=== PATIENT | female | born 1960 | race Caucasian/White ===

== ENCOUNTER 2016-04-19 11:39 | Emergency (ER) | payer OTHER ==
[2016-04-19] MEDS ORDERED: ASPIRIN CHEWTAB 81 MG TABLET ONE (12:06)
[2016-04-19] MEDS ORDERED: PREDNISONE 20 MG TABLET ONE (12:06)
[2016-04-19] MEDS ORDERED: ALBUTEROL/IPRATROPIUM 2.5/0.5 MG 3 ML/EACH DOSE ONE (12:13)
[2016-04-19 12:51] LABS: ABSOLUTE NEUTROPHIL COUNT 5.3 K/mm3 (1.8-7.7); BASO # 0.1 K/mm3 (0.0-0.2); BASO % 0.8 % (0.2-1.0); EOS # 0.2 (0.0-0.5); EOS % 1.9 % (0.9-2.9); HEMATOCRIT 38.5 % (37.0-47.0); HEMOGLOBIN 12.6 gm/l (12.0-16.0); IMM NEUT% 0.5 % (0-1); LYMPH # 1.8 (1.0-4.8); LYMPH % 23.1 % (15-45); MEAN CELL VOLUME 88.1 fl (81.0-99.0); MEAN CORPUSCULAR HEMOGLOBIN 28.8 pg (27.0-31.0); MEAN CORPUSCULAR HGB CONC 32.7 g/dl (33.0-37.0); MEAN PLATELET VOLUME 9.8 fl (7.4-10.4); MONO # 0.6 (0.0-0.8); MONO % 6.9 % (4-12); NEUT % 66.8 % (43-75); PLATELET COUNT 402 K/mm3 (130-400); RED CELL DISTRIBUTION WIDTH 12.7 % (11.5-14.5)
[2016-04-19 12:59] LABS: ALB/GLOB RATIO 0.9 (>1.0); ALBUMIN 3.5 gm/dL (3.5-5.7); CALCIUM 9.1 mg/dL (8.6-10.3)
--- NOTE | 2016-04-19 13:33 | RAD ---
History: Dyspnea for 3 weeks. Comparison: 01/06/2009. Technique: 2 views Findings: There is evidence of prior plate and screw fixation of the lower cervical spine. The heart size is stable. There is mild central vascular prominence identified with interstitial prominence seen bilaterally as well, more conspicuous than the appearance on prior exam. No gross consolidation or effusion is seen. The hilar and mediastinal structures are intact. Impression: 1. Mild central vascular prominence. 2. Minimal bilateral interstitial prominence with considerations including pulmonary edema versus atypical infection. No effusion is visualized. 3. Prior plate and screw fixation of the lower cervical spine.
== END 2016-04-19 14:05 | disposition home or self-care (01) ==
LOC: ED 11:39
DX: J44.9 Chronic obstructive pulmonary disease, unspecified (principal); J45.909 Unspecified asthma, uncomplicated; F17.210 Nicotine dependence, cigarettes, uncomplicated; Z79.51 Long term (current) use of inhaled steroids; Z79.899 Other long term (current) drug therapy
CPT/HCPCS: 83880; 85025; 80053; 84484; 71020; 94640; 99283 ×2; 93005; A9270; J7512